=== PATIENT | female | born 1935 | race Caucasian/White ===

== ENCOUNTER 2016-07-09 10:11 | Outpatient (CLI) | payer OTHER ==
--- NOTE | 2016-07-09 17:06 | DIAGNOSTIC IMAGING REPORT ---
PROCEDURE: XR BARIUM ENEMA W/AIR CONTRAST INDICATION: Abdominal pain. TECHNIQUE: Single contrast study. Fluoroscopy time, 3.4 minutes; 2398.52 mGy. 12 fluoroscopic images (total 28 images). COMPARISON: Compared CT abdomen and pelvis on 04/30/2011. FINDINGS: Preliminary abdominal radiograph demonstrates a 2 cm calcified gallstone in the right upper quadrant (previously documented). There is moderate to marked sigmoid diverticulosis. There is mild diverticulosis of the descending colon. The rest of the colon is redundant with a relatively mobile cecum. There is reflux into normal terminal ileum. No evidence of constricting or polypoid lesions. Towards the end of the procedure, the patient pinched her right thumb on the edge of the fluoroscopy table which resulted in two small linear lacerations in the base and mid thumb. This was bandaged by the RT, and I was summoned to further evaluate. The bandages were removed, revealing two lacerations (each approximately 1 cm in length). These sites were cleaned with Chloraprep, followed by neopsporin ointment, and re-bandaged (the patient was also given additional supplies). The patient was instructed to call me for any untoward symptoms from this injury. The patient's primary care physician (Dr. Palomino) also called informed of this issue. IMPRESSION: 1. Moderate to marked sigmoid diverticulosis with mild diverticulosis of the descending colon. 2. Otherwise negative barium enema. 3. Two linear lacerations of the right thumb secondary to injury during procedure. See discussion. The patient is returning in 3 days for upper GI / small bowel series, and the right thumb will be reevaluated at that time.
== END 2016-07-09 23:00 ==
LOC: XR SRH 10:11
DX: K57.30 Diverticulosis of large intestine without perforation or abscess without bleeding (principal); S61.011A Laceration without foreign body of right thumb without damage to nail, initial encounter

== ENCOUNTER → 2016-07-12 | Outpatient (CLI) | payer OTHER ==
--- NOTE | 2016-07-12 14:02 | DIAGNOSTIC IMAGING REPORT ---
PROCEDURE: XR UPPER GI WITH SBFT INDICATION: Abdominal pain (primarily lower abdominal pain). TECHNIQUE: Double contrast study. Fluoroscopy time 3.5 minute 3570.91 mGy. Barium contrast material infused and 108 images (including cine fluoroscopy) acquired over 1.5 hours time interval. COMPARISON: Compared to barium enema (07/09/2016) and CT abdomen and pelvis (04/30/2011). 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 Moderate degenerative changes of the lumbar spine. There are moderate tertiary contractions of the distal esophagus (presbyesophagus). Esophagus is otherwise normal. No constricting or polypoid lesions. No evidence of reflux. Stomach and duodenum are normal. The rest of the small bowel is normal with normal transit time (1.5 hours). Terminal ileum is normal IMPRESSION: 1. Moderate tertiary contractions of the esophagus (presbyesophagus) which may be within normal limits for a patient of this age. 2. No evidence of reflux on this study. 3. Otherwise negative upper GI and small bowel series.
--- NOTE | 2016-07-12 14:02 | DIAGNOSTIC IMAGING REPORT ---
PROCEDURE: XR UPPER GI WITH SBFT INDICATION: Abdominal pain (primarily lower abdominal pain). TECHNIQUE: Double contrast study. Fluoroscopy time 3.5 minute 3570.91 mGy. Barium contrast material infused and 108 images (including cine fluoroscopy) acquired over 1.5 hours time interval. COMPARISON: Compared to barium enema (07/09/2016) and CT abdomen and pelvis (04/30/2011). 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 Moderate degenerative changes of the lumbar spine. There are moderate tertiary contractions of the distal esophagus (presbyesophagus). Esophagus is otherwise normal. No constricting or polypoid lesions. No evidence of reflux. Stomach and duodenum are normal. The rest of the small bowel is normal with normal transit time (1.5 hours). Terminal ileum is normal IMPRESSION: 1. Moderate tertiary contractions of the esophagus (presbyesophagus) which may be within normal limits for a patient of this age. 2. No evidence of reflux on this study. 3. Otherwise negative upper GI and small bowel series.
== END ==
LOC: XR SRH 10:19
DX: R10.9 Unspecified abdominal pain (principal)